=== PATIENT | male | born 2005 | race Caucasian/White ===

== ENCOUNTER 2024-02-02 20:14 | Emergency (ER) | payer SELFPAY ==
[2024-02-02 20:45] LABS: BILIRUBIN,URINE NEGATIVE (NEGATIVE); COLOR,URINE YELLOW; GLUCOSE,URINE NEGATIVE (NEGATIVE); KETONES,URINE NEGATIVE (NEGATIVE); LEUKOCYTE ESTERASE,URINE LARGE (NEGATIVE); NITRITE,URINE POSITIVE (NEGATIVE); OCCULT BLOOD,URINE SMALL (NEGATIVE); PROTEIN,URINE NEGATIVE (NEGATIVE); UROBILINOGEN,URINE 0.2 EU/dL (<2.0)
[2024-02-02 20:49] LABS: APPEARANCE,URINE HAZY
[2024-02-02 21:05] LABS: BACTERIA,URINE FEW (NEGATIVE); EPITHELIAL CELLS,URINE FEW (NONE-FEW); WBC,URINE 30-40 (0-5/HPF)
[2024-02-02 22:25] LABS: C. TRACHOMATIS BY PCR DETECTED; N. GONORRHOEAE BY PCR DETECTED
[2024-02-02] MEDS: cefTRIAXone 1 GM Vial IM ONE (22:45)
[2024-02-02] MEDS: Doxycycline 100 MG Cap PO ONE (22:52)
[2024-02-02] MEDS: Lidocaine 1% PF 2 ML SDV INJECT ONE (22:52)
[2024-02-02] MEDS: cefTRIAXone 500 MG Vial IM ONE (22:52)
== END 2024-02-02 22:56 | disposition home or self-care (01) ==
LOC: MW.ED 20:14
DX: A64 Unspecified sexually transmitted disease (principal); Z75.8 Other problems related to medical facilities and other health care
CPT/HCPCS: 81001; 87086; 87491; 87591; 99283; A9270; J0696; J3490